=== PATIENT | female | born 1965 | race Caucasian/White ===

== ENCOUNTER 2020-03-12 09:24 | Emergency (ER) | payer BC ==
--- NOTE | 2020-03-12 09:44 | RAD ---
Exam: Chest one view HISTORY:Left chest wall pain. Comparison: None FINDINGS: Cardiac silhouette: Normal Aorta: Unremarkable Pulmonary vessels: Normal Costophrenic angles: Clear LUNGS: No masses or consolidation. Pneumothorax: None Osseous abnormalities: None IMPRESSION: No acute cardiopulmonary process.
== END 2020-03-12 09:58 | disposition home or self-care (01) ==
LOC: ERS 09:24
DX: R07.81 Pleurodynia (principal); F17.210 Nicotine dependence, cigarettes, uncomplicated
CPT/HCPCS: 71045

== ENCOUNTER 2022-06-02 09:34 | Outpatient (CLI) | payer BC | END 2022-06-02 09:35 | disposition home or self-care (01) | LOC: SJX 09:34 | PROVIDERS: ATTEND Family Medicine | DX: M54.9 Dorsalgia, unspecified (principal); R29.4 Clicking hip ==

== ENCOUNTER 2022-07-12 14:53 | Outpatient (CLI) | payer BC | END 2022-07-12 14:54 | disposition home or self-care (01) | LOC: BICMAMMO 14:53 | PROVIDERS: ATTEND Family Medicine | DX: Z12.31 Encounter for screening mammogram for malignant neoplasm of breast (principal) | CPT/HCPCS: 77063; 77067 ==

== ENCOUNTER 2023-11-06 14:50 | Outpatient (CLI) | payer BC | END 2023-11-06 14:51 | disposition home or self-care (01) | LOC: BICRAD 14:50 | PROVIDERS: ATTEND Family Medicine | DX: M54.50 Low back pain, unspecified (principal); M47.816 Spondylosis without myelopathy or radiculopathy, lumbar region | CPT/HCPCS: 72100 ==

== ENCOUNTER 2024-06-26 21:29 | Emergency (ER) | payer BC ==
[2024-06-26] MEDS ORDERED: Ketorolac Tromethamine 30 MG (1 mL) VIAL ONE (21:38)
[2024-06-26 22:39] LABS: #Basophils 0.03 10x3/uL (0.0-0.2); %Basophils 0.3 % (0.0-1.0); %Eosinophils 0.5 % (0.0-10.0); %Neutrophils 70.9 % (42.0-75.0); Hematocrit 42.6 % (36.0-47.0); Mean Corpuscular HGB CONC 35.2 g/dL (32.0-36.0); Mean Corpuscular Hemoglobin 31.6 pg (27.0-31.0); Mean Corpuscular Volume 89.7 fL (78.0-98.0); Mean Platelet Volume 10.1 fL (7.4-10.4); Platelet Count 191 10x3/uL (130-400); Red Blood Cell (RBC) Count 4.75 mill/uL (4.20-5.40)
[2024-06-26 22:50] LABS: BHCG - Serum Negative (NEGATIVE); Pregs Control Background? CLEAR/WHITE (CLR/WHITE); Pregs Control Bar Appear? YES (CONTROL BAR)
[2024-06-26 22:55] LABS: ALT (SGPT) 24 U/L (Less than 34); AST (SGOT) 47 U/L (11-34); Albumin 3.7 g/dL (3.1-4.5); Alkaline Phosphatase 47 U/L (40-110); Anion Gap 13 mmol/L (10-20); BUN (Urea Nitrogen) 13 mg/dL (9.8-20.1); Bilirubin, Total 0.3 mg/dL (0.3-1.2); Calc. Creatinine Clearance 0 mL/min (70-130); Calcium 9.6 mg/dL (7.8-10.44); Carbon Dioxide 22 mmol/L (22-29); Chloride 107 mmol/L (98-107); Estimated GFR 91; Globulin 4.2 g/dL (2.4-3.5); Glucose 121 mg/dL (70-105); Potassium 4.2 mmol/L (3.5-5.1); Protein, Total 7.9 g/dL (6.0-8.3); Sodium 138 mmol/L (136-145)
[2024-06-26 23:00] LABS: Troponin I Less than 0.010 ng/mL (< 0.028)
[2024-06-26 23:07] LABS: Lipase 36 U/L (8-78)
[2024-06-26 23:10] LABS: Acetaminophen Less than 10 mcg/mL (Less than 10); Alcohol Less than 10.0 mg/dL (Less than 10); Salicylate Less than 8.0 mg/dL (Less than 8.0)
[2024-06-27] MEDS ORDERED: Acetaminophen 500 MG TAB ONE (00:50)
[2024-06-27] MEDS ORDERED: Cyclobenzaprine 10 MG TAB ONE (00:50)
== END 2024-06-27 07:06 | disposition home or self-care (01) ==
LOC: ERS 21:29
DX: S12.500A Unspecified displaced fracture of sixth cervical vertebra, initial encounter for closed fracture (principal); S22.41XA Multiple fractures of ribs, right side, initial encounter for closed fracture; S22.059A Unspecified fracture of T5-T6 vertebra, initial encounter for closed fracture; F17.210 Nicotine dependence, cigarettes, uncomplicated; Z55.0 Illiteracy and low-level literacy; V89.2XXA Person injured in unspecified motor-vehicle accident, traffic, initial encounter
CPT/HCPCS: 70450; 70498; 71045; 71260; 72125; 74177; 80053; 80307; 83690; 84484; 84703; 85025; 93005; G0390; J1885